=== PATIENT | male | born 1970 | race Caucasian/White ===

== ENCOUNTER 2016-07-11 09:16 | Inpatient (IN) | payer MEDICARE ==
[~2016-07-11] VITALS: Ht 175.3 cm; Wt 74.4 kg
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
[2016-07-11] MEDS ORDERED: HYDROCODONE/APAP 10/325MG 1 EA TABLET PO ONE (09:30)
[2016-07-11] MEDS ORDERED: ONDANSETRON 4 MG TAB.RAPDIS SL ONE (09:30)
[2016-07-11] MEDS ORDERED: HYDROCODONE/APAP 10/325MG 1 EA TABLET ONE (09:36)
[2016-07-11] MEDS ORDERED: ONDANSETRON 4 MG TAB.RAPDIS ONE (09:36)
--- NOTE | 2016-07-11 09:42 | NUR ---
PT TAKEN TO CT SCAN VIA LAITH Addendum: 07/11/16 at 0943 by KEILY XRAY
--- NOTE | 2016-07-11 09:47 | NUR ---
PT BACK TO ER BED 9 FROM XRAY
[2016-07-11] MEDS ORDERED: IV NS 0.9% 500 ML BAG IV ONE (10:30)
--- NOTE | 2016-07-11 10:30 | NUR ---
LAC#20 IV ACCESS. COLLECTED BLOOD SAMPLE SENT TO LAB
[2016-07-11] MEDS ORDERED: IV NS 0.9% 500 ML IV ONE (10:31)
[2016-07-11] MEDS ORDERED: IV SET PRIMARY PUMP SET 1 EA INFUS.SET MC ONE (10:32)
[2016-07-11 10:40] LABS: CALCIUM, SERUM 8.7 mg/dL (8.5-10.1); CREATININE 0.7 mg/dL (0.6-1.3); POTASSIUM 4.2 mmol/L (3.5-5.1)
[2016-07-11] MEDS ORDERED: IOHEXOL-350 100 ML VIAL IV ONE (10:51)
[2016-07-11] MEDS ORDERED: IV NS 0.9% 250 ML IV ONE (10:51)
[2016-07-11] MEDS ORDERED: CT SWABBABLE VALVE TRANS SET 1 EA INFUS.SET MC ONE (10:51)
[2016-07-11 10:53] LABS: BASOPHILS % (AUTO) 0.3 % (0.0-2.0); EOSINOPHILS % (AUTO) 0.2 % (0.0-6.0); HEMATOCRIT 43 % (39-51); HEMOGLOBIN 14.2 g/dL (13.5-17.5); LYMPHOCYTES # (AUTO) 1.5 /CMM (0.8-4.8); LYMPHOCYTES % (AUTO) 10.7 % (20.0-44.0); MEAN CORPUSCULAR HEMOGLOBIN 30 PG (26.0-33.0); MEAN CORPUSCULAR HGB CONC 33 g/dl (31.0-36.0); MEAN CORPUSCULAR VOLUME 89 fL (80-96); MONOCYTES # (AUTO) 0.9 /CMM (0.1-1.30); MONOCYTES % (AUTO) 6.1 % (2.0-12.0); NEUTROPHILS % (AUTO) 82.7 % (43.0-81.0); PLATELET COUNT (AUTO) 307 /CMM (150-450); RDW COEFFICIENT OF VARIATION 13.7 (11.5-15.0); RED BLOOD CELL COUNT(AUTO) 4.78 MIL/uL (4.5-6.0); WHITE BLOOD COUNT (AUTO) 14.5 K/uL (4.3-11.0)
--- NOTE | 2016-07-11 11:00 | NUR ---
GAVE REPORT TO JORGE CARREON. PT STABLE AT THIS TIME.
--- NOTE | 2016-07-11 11:49 | NUR ---
CALLED NURSING SUP. FOR MS BED
--- NOTE | 2016-07-11 12:04 | NUR ---
MELISSA PAGED, TERRANCE STYLES SILO TENDER
--- NOTE | 2016-07-11 12:34 | NUR ---
UPDATED NURSING SUP. I NEED A TELE BED
[2016-07-11] MEDS ORDERED: MORPHINE SULFATE INJ 4 MG/ML DISP.SYRIN ONE (12:43)
[2016-07-11] MEDS ORDERED: ONDANSETRON HCL/PF 4 MG/2 ML VIAL ONE (12:43)
[2016-07-11 13:00] VITALS: BP 122/86
[2016-07-11] MEDS ORDERED: MORPHINE SULFATE INJ 2 MG/ML DISP.SYRIN IV ONE (13:00)
[2016-07-11] MEDS ORDERED: ONDANSETRON HCL/PF 4 MG/2 ML VIAL IVP ONE (13:00)
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
--- NOTE | 2016-07-11 13:08 | NUR ---
PT TRANSPORTED TO 103 IN STABLE CONDITION VIA ACLS PROTOCOL, ON NRB MASK PER MD ORDER. PT WAS MEDICATED PER MD PRIOR TO TRANSFER. VSS.
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
[2016-07-11] MEDS ORDERED: ACETAMINOPHEN 325 MG TABLET PO PRN (14:30)
[2016-07-11] MEDS ORDERED: Z GUARD REMEDY 2 OZ OINT TP PRN (14:30)
[2016-07-11] MEDS ORDERED: ZOLPIDEM TARTRATE 5 MG TABLET PO PRN (14:30)
[2016-07-11] MEDS ORDERED: ONDANSETRON HCL/PF 4 MG/2 ML VIAL IVP PRN (14:30)
[2016-07-11 16:00] VITALS: BP 110/69
--- NOTE | 2016-07-11 16:00 | NUR ---
LACQUER SHADER NOTES: Made rounds. Pt in stable condition, no c/o pain at this time, no SOB noted. Will continue to monitor.
--- NOTE | 2016-07-11 18:00 | NUR ---
SENIOR QUALITY ANALYST NOTES: Pt seen by YOCASTA Tucker regarding mcfp placement when DC as per pt's request.
--- NOTE | 2016-07-11 18:15 | NUR ---
TOUR COUNSELOR NOTES: Per pt's request, [facility] unit notified of consult w/ Dr. Pitt.
--- NOTE | 2016-07-11 19:10 | NUR ---
RN INITIAL NOTES RECEIVED PATIENT IN BED, AWAKE AND ALERT X4. ABLE TO MAKE NEEDS KNOWN. PATIENT NOTED TO BE ON ROOM AIR, SATURATING WELL, VERBALIZES OCCASIONAL SOB AND WITH DISCOMFORT WITH DEEP BREATHING. ENCOURAGED PATIENT TO USE NRB FOR COMFORT, PATIENT ABLE TO VERBALIZE UNDERSTANDING. ON TELE, SHOWING SR AT 94. L FOREARM G18, FLUSHED AND PATENT, NO SIGNS OF INFILTRATION. PATIENT'S NEEDS ANTICIPATED AND MET. SAFETY AND COMFORT ENSURED. BED IN LOW AND LOCKED POSITION. CALL LIGHT IN REACH. WILL MONITOR CLOSELY.
--- NOTE | 2016-07-11 19:13 | NUR ---
RN CLOSING NOTES: No acute changes observed within shift. Pt is not on any distress, A & O x3, no c/o pain. Pt's IV line LFA G18, patent & intact. All needs attended. Safety maintained. Call light placed w/in reached. Endorsed to PM Nurse for continuity of care.
[2016-07-11] MEDS: MORPHINE SULFATE INJ 2 MG/ML DISP.SYRIN IV PRN ×2 (19:54→22:20)
[2016-07-11 20:00] VITALS: BP 115/68
--- NOTE | 2016-07-11 20:27 | NUR ---
RN NOTES PATIENT WAS MEDICATED FOR 10/10 L FLANK PAIN PER PATIENT'S REQUEST. PATIENT REASSESSED AND AT THIS TIME, PATIENT IS NOTED TO BE SLEEPING COMFORTABLY IN BED, RESPIRATION IS EVEN AND UNLABORED WITH NO DISTRESS.
--- NOTE | 2016-07-11 22:55 | NUR ---
RN NOTES PATIENT MEDICATED WITH MSO4 AT 2220 FOR C/O L FLANK PAIN, 12/04. REASSESSED AT THIS TIME AND PATIENT STILL WITH MODERATE PAIN ON SITE. PATIENT REQUESTED FOR SLEEPING MEDICATION, AMBIEN GIVEN ORDERED. SAFETY AND COMFORT ENSURED. CALL LIGHT IN REACH.
[2016-07-12] VITALS: BP 107/69
[2016-07-12] MEDS: MORPHINE SULFATE INJ 2 MG/ML DISP.SYRIN IV PRN ×4 (03:55→14:28)
[2016-07-12 04:00] VITALS: BP 132/84
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
--- NOTE | 2016-07-12 06:49 | NUR ---
RN CLOSING NOTES PATIENT MEDICATED FOR PAIN NEEDED WITH HELP FOR THE PATIENT, ABLE TO MANAGE PAIN AT THIS TIME. ENCOURAGED USE OF O2 VIA NRB, PATIENT ABLE TO COMPLY. NO DISTRESS AT THIS TIME. REMAINS ON SR AT 91. NEEDS ANTICIPATED AND MET. SAFETY AND COMFORT ENSURED. BED IN LOW AND LOCKED POSITION. CALL LIGHT IN REACH. WILL ENDORSE ACCORDINGLY FOR CONTINUITY OF CARE.
--- NOTE | 2016-07-12 07:15 | NUR ---
TELE/ RN INITIAL NOTES: Rec'd pt awake on bed, A & O x4. Pt c/o generalized pain, 02/03, Morphine SO4 2mg IV given as PRN med. Pt not on non rebreather mask, saturating at 95%, no SOB, explained to pt the risks & benefits of not wearing it but pt still refuses, respects pt's right. Pt has LFA G18, SL, flushed, patent & intact, no signs of infection/ infiltration noted. On telemonitor, SR w/ HR 80, not on any cardiac distress. Call light placed w/in reached. Bed kept low & in locked position. Will continue to monitor.
[2016-07-12 08:00] VITALS: BP 119/81
[2016-07-12 08:24] LABS: BASOPHILS % (AUTO) 0.3 % (0.0-2.0); EOSINOPHILS # (AUTO) 0.1 /CMM (0.0-0.7); EOSINOPHILS % (AUTO) 1.6 % (0.0-6.0); HEMATOCRIT 42 % (39-51); HEMOGLOBIN 14.1 g/dL (13.5-17.5); LYMPHOCYTES # (AUTO) 1.8 /CMM (0.8-4.8); LYMPHOCYTES % (AUTO) 20.3 % (20.0-44.0); MEAN CORPUSCULAR HEMOGLOBIN 30 PG (26.0-33.0); MEAN CORPUSCULAR HGB CONC 33 g/dl (31.0-36.0); MEAN CORPUSCULAR VOLUME 90 fL (80-96); MONOCYTES # (AUTO) 0.8 /CMM (0.1-1.30); MONOCYTES % (AUTO) 9.2 % (2.0-12.0); NEUTROPHILS # (AUTO) 6.1 /CMM (1.8-8.9); NEUTROPHILS % (AUTO) 68.6 % (43.0-81.0); PLATELET COUNT (AUTO) 292 /CMM (150-450); RDW COEFFICIENT OF VARIATION 14.1 (11.5-15.0); RED BLOOD CELL COUNT(AUTO) 4.73 MIL/uL (4.5-6.0); WHITE BLOOD COUNT (AUTO) 8.9 K/uL (4.3-11.0)
[2016-07-12 08:32] LABS: ALBUMIN 3.5 g/dL (3.4-5.0); BILIRUBIN,TOTAL 0.4 mg/dL (0.2-1.0); CALCIUM, SERUM 8.7 mg/dL (8.5-10.1); CREATININE 0.8 mg/dL (0.6-1.3); MAGNESIUM 1.9 mg/dL (1.8-2.4); PHOSPHORUS 3.3 mg/dL (2.5-4.9); POTASSIUM 4.1 mmol/L (3.5-5.1); TOTAL PROTEIN, SERUM 6.9 g/dL (6.4-8.2)
[2016-07-12 08:36] LABS: THYROID STIMULATING HORMONE 2.065 uIU/mL (0.358-3.74)
--- NOTE | 2016-07-12 09:45 | NUR ---
RN NOTES: Seen & examined by Dr. Pitt w/ no new orders.
[2016-07-12 12:00] VITALS: BP 135/90
--- NOTE | 2016-07-12 14:30 | NUR ---
RN NOTES: Pt seen & examined by CIERRA Zarate w/ vanessa & carried out.
--- NOTE | 2016-07-12 14:35 | NUR ---
RN NOTES: As per ICE CREAM DIPPER ashley Angela to DC O2 support (non rebreather mask at 15lpm)
[2016-07-12] MEDS: HYDROCODONE/APAP 5/325MG 1 EACH TABLET PO PRN ×2 (15:12→19:33)
[2016-07-12 16:00] VITALS: BP 123/67
--- NOTE | 2016-07-12 18:30 | NUR ---
CHANNEL CEMENTER CLOSING NOTES: Pt A&O x3, not in any distress, no c/o pain as of this time. On room air, no SOB, saturating at 97%. LFA G18 SL, flushed, patent, C/D/I, no signs of infection/ infiltration noted. Pt refused PM care & bed bath during shift. CL placed w/in reached. Bed kept low & in locked pos. Will endorse to PM nurse for KARINE.
--- NOTE | 2016-07-12 19:20 | NUR ---
RN INITIAL NOTES RECEIVED PATIENT IN BED, AWAKE AND ALERT. PATIENT ON ROOM AIR AT THIS TIME, NO DISTRESS, NO SOB. SATURATING WELL AT 96%. DENIES ANY PAIN AND DISCOMFORT. L AC PIV, FLUSHED AND PATENT, NO INFILTRATION NOTED. PATIENT'S NEEDS ANTICIPATED AND MET. SAFETY AND COMFORT ENSURED. BED IN LOW AND LOCKED POSITION. CALL LIGHT IN REACH. WILL MONITOR.
[2016-07-12 20:00] VITALS: BP 124/78
[2016-07-12] MEDS: ENOXAPARIN SODIUM 40 MG/0.4 ML DISP.SYRIN SQ SCH (21:00)
--- NOTE | 2016-07-12 21:15 | NUR ---
RN NOTES PATIENT WAS MEDICATED FOR L FLANK PAIN, 11/03, WITH NORCO 5/325, PER PATIENT'S REQUEST AT 1930. PATIENT AT THIS TIME IS SLEEPING COMFORTABLY AND SOUNDLY, NO DISTRESS. ON 15LPM OF O2 VIA NRB.
--- NOTE | 2016-07-12 21:59 | NUR ---
RN NOTES PATIENT SLEEPING COMFORTABLY, DENIES LOVENOX AT THIS TIME, INSISTED TO BE LEFT ALONE TO SLEEP. EXPLAINED RISKS AND BENEFITS X3, TO NO AVAIL.
[2016-07-13] MEDS: HYDROCODONE/APAP 5/325MG 1 EACH TABLET PO PRN ×6 (00:18→20:20)
[2016-07-13 04:00] VITALS: BP 110/77
--- NOTE | 2016-07-13 06:35 | NUR ---
RN CLOSING NOTES PATIENT WITH NO ACUTE DISTRESS OBSERVED OVERNIGHT. PATIENT'S L FLANK PAIN MANAGED WELL WITH NORCO, GIVEN PER PATIENT'S REQUEST EVERY 4HOURS. NO RESPIRATORY DISTRESS NOTED. PATIENT ABLE TO TOLERATE ROOM AIR WITH NO DISTRESS, NO C/O SOB. SATURATION KEPT ABOVE 96%. PATIENT'S NEEDS ANTICIPATED AND MET. SAFETY AND COMFORT ENSURED. BED IN LOW AND LOCKED POSITION. CALL LIGHT WITHIN REACH. WILL ENDORSE ACCORDINGLY FOR CONTINUITY OF CARE.
--- NOTE | 2016-07-13 07:30 | NUR ---
RN INTIAL NOTE RECEIVED REPORT FROM PM NURSE. PT SPEAKING A/OX4. IV LAC 18G SL FLUSHED AND PATENT. PT C/O PAIN 02/03. PT KEEP WARM AND DRY. SELF REPOSITION FOR SAFETY AND COMFORT. PT NON-REBREATHER MASK 15L/MIN. NO C/O ACUTE SOB. BED RAILS UP, BED LOW AND LOCKED AND CALL LIGHT WITH IN REACH. WILL CONTINUE TO MONITOR CLOSELY.
[2016-07-13 08:00] VITALS: BP 97/69
--- NOTE | 2016-07-13 09:55 | NUR ---
RN NOTE ENTERED ROOM PT NON-REBREATHER MASK ON FLOOR. PT REFUSED TO WEAR NON REBREATHER MASK STATED THE NOISE DOES NOT LET HIM SLEEP AND ANNOYS HIM. SPO2 TAKEN ON RA 94%. N/C @ 2L .
[2016-07-13 16:00] VITALS: BP 116/65
--- NOTE | 2016-07-13 16:50 | NUR ---
PT REFUSED PHYSICAL THERAPY STATED DID NOT LIKE THE VIBE AND THAT PHYSICAL THERAPY WAS AGAINST HIS MORMONISM. HE'S JEHOVA WITNESS.
--- NOTE | 2016-07-13 18:55 | NUR ---
RN CLOSING NOTE PT V/S WNL. PT ON 2L NC ABLE TO TOLERATE RA SPO2 97% . AT TIMES PT FOUND TALKING TO HIMSELF. PT REMAINED STABLE THROUGHOUT SHIFT. NO C/O OF ACUTE SOB, PAIN MEDICATION GIVEN PRN Q4HR . PT REFUSED PHYSICAL THERAPY.ALL SAFETY MEASURES IN PLACED. ALL MD ORDERS CARRIED OUT.REPORT GIVEN TO PM NURSE FOR KARINE.
[2016-07-13 20:00] VITALS: BP 111/73
--- NOTE | 2016-07-13 20:15 | NUR ---
MS RN NOTE PT IN BED AWAKE, SEMIFOWLER, A/O X 4, NO SOB NOTED. C/O PAIN IN LT FLANK AREA 11/03, NORCO 1 TAB PO GIVEN. H/L LAC #18 G INTACT AND PATENT. SIDE RAILS UP X 2 AND CALL LIGHT WITHIN REACH. VSS. CONTINUE TO MONITOR HIM.
[2016-07-13] MEDS: ENOXAPARIN SODIUM 40 MG/0.4 ML DISP.SYRIN SQ SCH (20:51)
--- NOTE | 2016-07-13 21:20 | NUR ---
MS RN NOTE PAIN SUBSIDED 05/06. NO FURTHER DISTRESS NOTED.
[2016-07-14] MEDS: HYDROCODONE/APAP 5/325MG 1 EACH TABLET PO PRN ×4 (00:17→15:05)
--- NOTE | 2016-07-14 00:20 | NUR ---
MS RN NOTE PT WOKE UP AND C/O PAIN 6/10 DULL ACHING, NORCO 1 TAB PO GIVEN. CONTINUE TO MONITOR HIM.
[2016-07-14 04:00] VITALS: BP 100/55
--- NOTE | 2016-07-14 05:15 | NUR ---
MS RN NOTE PT WOKE WITH PAIN IN LT FLANK AREA 10/04, NORCO 1 TAB PO GIVEN.
--- NOTE | 2016-07-14 06:26 | NUR ---
MS RN NOTE PT IN BED ASLEEP, AROUSABLE. NO DISTRESS OR DISCOMFORT NOTED. PAIN SUBSIDED 05/06. H/L INTACT AND PATENT, NO S/S OF INFILTRATION NOTED. SIDE RAILS UP X 2 AND CALL LIGHT WITHIN REACH. WILL ENDORSE TO DAY SHIFT NURSE FOR CONTINUE TO CARE.
--- NOTE | 2016-07-14 07:15 | NUR ---
RN MS INITIAL NOTES RECEIVED REPORT AND PT FROM PM NURSE. A&O X4, ON RA SAT ABOVE 97%, LT AC 18 G INTACT AND PATENT NO S.S OF INFILTRATION, ALL NEEDS MET,ALL SAFETY MEASURES INITIATED, SIDE RAILS X2, BED LOW AND LOCKED, CALL LIGHT WITHIN REACH, WILL CONTINUE TO MONITOR.
[2016-07-14 08:00] VITALS: BP 105/65
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
--- NOTE | 2016-07-14 12:59 | NUR ---
RN MS NOTES PT REFUSED PT AND OT SINCE HE IS ORTHODOX AND ONLY WANTS MALE THERAPISTS, ABLE TO PROVIDED MALE OT THERAPIST BUT STILL REFUSED.
[2016-07-14] MEDS ORDERED: HYDR-3326 PO (15:35)
[2016-07-14] MEDS ORDERED: ENOX40DI SQ (15:35)
[2016-07-14 16:00] VITALS: BP 114/67
[2016-07-14] MEDS ORDERED: FLU VACC QS 2016-17(36MOS+)/PF 0.5 ML DISP.SYRIN IM ONE (16:30)
--- NOTE | 2016-07-14 16:39 | NUR ---
RN MS ENDING NOTES PT LEFT WITH AMBULANCE, GAVE REPORT TO [facility] TO NURSE MAYO, EXIT CARE DONE WITH DC PAPERWORK SIGNED AND COMPLETE, LT AC 18 REMOVED NO INFILTRATION NOTED, PRESCRIPTION LIST PROVIDED TO PT AND AMBULANCE, PTS ENDING VS 98.1, RESP 20, HR 76, O2 97% ON RA, BP 114/67, PT STABLE FOR DC, ALL DUE MEDS GIVEN, ALL NEEDS MET, BELONGINGS GIVEN TO PT, LEFT VIA AMBULANCE.
== END 2016-07-14 16:46 | DRG 199 ==
LOC: ER 09:18 → MEDSG1 12:17 → TELE1 12:39 → MEDSG1 07-12 17:57
PROVIDERS: ADMIT Nurse Practitioner Acute Care; ATTEND Nurse Practitioner Acute Care
DX: S27.0XXA Traumatic pneumothorax, initial encounter (principal); J96.00 Acute respiratory failure, unspecified whether with hypoxia or hypercapnia; S22.42XA Multiple fractures of ribs, left side, initial encounter for closed fracture; Z59.0 Homelessness; D72.829 Elevated white blood cell count, unspecified; F17.210 Nicotine dependence, cigarettes, uncomplicated; V03.90XA Pedestrian on foot injured in collision with car, pick-up truck or van, unspecified whether traffic or nontraffic accident, initial encounter; Y93.9 Activity, unspecified; Y92.89 Other specified places as the place of occurrence of the external cause; Y99.9 Unspecified external cause status; F29 Unspecified psychosis not due to a substance or known physiological condition; F32.9 Major depressive disorder, single episode, unspecified
CPT/HCPCS: 36415; 71100-TC; 71260-TC; 72193-TC; 73630-TC; 74160-TC; 80048-TC; 80053-TC; 80061-TC; 83540-TC; 83735-TC; 84100-TC; 84443-TC; 85025-TC; 87081-TC; A4606; J1650; J2270; J2405; J7040; J7050; Q0162; Q2036; Q9967; Z7610